=== PATIENT | male | born 1990 | race Caucasian/White ===

== ENCOUNTER 2017-10-25 21:16 | Emergency (ER) | payer OTHER ==
[2017-10-26] MEDS: ADACEL/BOOSTRIX VACCINE (DIPHTH/PERTUSS/ACELL/TETANUS)0.5ML SYR (90715) IM (00:27)
[2017-10-26] MEDS: RABIES VACCINE HUMAN 2.5 INTERNATIONAL UNITS/ML VIAL (90675) IM (00:29)
[2017-10-26] MEDS: RABIES IMMUNE GLOBULIN 1500 INTERNATIONAL UNITS/10 ML VIAL (90375) IM (00:35)
== END 2017-10-26 01:27 | disposition home or self-care (01) ==
LOC: M ED 10-26 01:27
DX: S51.852A Open bite of left forearm, initial encounter (principal); W54.0XXA Bitten by dog, initial encounter; Y92.410 Unspecified street and highway as the place of occurrence of the external cause; Y93.K1 Activity, walking an animal; F17.200 Nicotine dependence, unspecified, uncomplicated
CPT/HCPCS: 90471

== ENCOUNTER 2017-11-09 15:31 | Emergency (ER) | payer OTHER ==
[2017-11-09] MEDS: RABIES VACCINE HUMAN 2.5 INTERNATIONAL UNITS/ML VIAL (90675) IM (15:52)
== END 2017-11-09 16:32 | disposition home or self-care (01) ==
LOC: M ED 15:31
DX: Z20.3 Contact with and (suspected) exposure to rabies (principal); F17.210 Nicotine dependence, cigarettes, uncomplicated; Z79.2 Long term (current) use of antibiotics
CPT/HCPCS: 90471